=== PATIENT | male | born 1985 | race Caucasian/White ===

== ENCOUNTER 2020-10-28 07:37 | Emergency (ER) | payer MEDICAID ==
[~2020-10-28] VITALS: Ht 170.2 cm; Wt 69.9 kg
--- NOTE | 2020-10-28 07:37 | NUR ---
PT [address] C/O ABDOMINAL PAIN AND SUICIDAL IDEATION "I WANT TO CUT MY WRIST" PT IS AAOX4, NOT IN RESPIRATORY DISTRESS, V/S STABLE, KEPT RESTED AND COMFORTABLE. SITTER AT BEDSIDE. WILL CONTINUE TO MONITOR.
--- NOTE | 2020-10-28 07:42 | NUR ---
URINE SPECIMEN COLLECTED AND SENT TO LAB.
--- NOTE | 2020-10-28 07:49 | NUR ---
SEEN AND EXAMINED BY .
[2020-10-28] MEDS ORDERED: LORAZEPAM 1 MG TABLET ONE (07:59)
[2020-10-28] MEDS ORDERED: LORAZEPAM 1 MG TABLET PO ONE (08:00)
--- NOTE | 2020-10-28 08:01 | NUR ---
ER PHLEB AT BEDSIDE FOR BLOOD DRAW.
[2020-10-28 08:18] LABS: BASOPHILS % (AUTO) 0.5 % (0.0-2.0); EOSINOPHILS % (AUTO) 1.1 % (0.0-6.0); HEMATOCRIT 41 % (39-51); HEMOGLOBIN 13.7 g/dL (13.5-17.5); LYMPHOCYTES # (AUTO) 1.7 K/uL (0.8-4.8); LYMPHOCYTES % (AUTO) 18.6 % (20.0-44.0); MEAN CORPUSCULAR HGB CONC 33 g/dl (31.0-36.0); MEAN CORPUSCULAR VOLUME 92 fL (80-96); MONOCYTES # (AUTO) 0.5 K/uL (0.1-1.30); NEUTROPHILS # (AUTO) 6.7 K/uL (1.8-8.9); NEUTROPHILS % (AUTO) 73.8 % (43.0-81.0); PLATELET COUNT (AUTO) 266 K/uL (150-450); RED BLOOD CELL COUNT(AUTO) 4.53 MIL/uL (4.5-6.0)
[2020-10-28 08:20] LABS: BILIRUBIN,URINE NEGATIVE (NEGATIVE); COLOR,URINE YELLOW (YELLOW); LEUKOCYTE ESTERASE ,URINE NEGATIVE (NEGATIVE); NITRITE, URINE NEGATIVE (NEGATIVE); PROTEIN,URINE NEGATIVE (NEGATIVE); UGLUCOSE >=1000 mg/dL (NEGATIVE); UROBILINOGEN,URINE 0.2 EU/dL (0.2)
[2020-10-28 08:30] LABS: ALANINE AMINOTRANSFERASE 26 U/L (12-78); ALBUMIN 3.3 g/dL (3.4-5.0); ALCOHOL, BLOOD < 3 mg/dL (0-0); ALKALINE PHOSPHATASE 75 U/L (46-116); ASPARTATE AMINOTRANSFERASE 22 U/L (15-37); BILIRUBIN,DIRECT 0.1 mg/dL (0.0-0.2); BILIRUBIN,TOTAL 0.4 mg/dL (0.2-1.0); CALCIUM, SERUM 8.5 mg/dL (8.5-10.1); CARBON DIOXIDE 28 mmol/L (21-32); CHLORIDE 99 mmol/L (98-107); CREATININE 0.8 mg/dL (0.6-1.3); GLUCOSE 335 mg/dL (74-106); POTASSIUM 3.8 mmol/L (3.5-5.1); SODIUM SERUM 134 mmol/L (136-145); TOTAL PROTEIN, SERUM 6.4 g/dL (6.4-8.2); UREA NITROGEN, BLOOD 10 mg/dL (7-18)
[2020-10-28 08:37] LABS: ACETAMINOPHEN 0 ug/ml (10-30)
[2020-10-28 08:43] LABS: BACTERIA,URINE None seen /HPF (None Seen); RBC,URINE 0-2 /HPF (0-2); SQUAMOUS EPITHELIAL CELL,UR Few /HPF (None Seen); WBC,URINE 0-2 /HPF (0-3)
--- NOTE | 2020-10-28 10:31 | NUR ---
BRIANDA HERNANDEZ, CALLED, WAITING ON BREAD DOUGH MIXER F Addendum: 10/28/20 at 1032 by CALISTA BRIANDA HERNANDEZ, CALLED, WAITING ON BREAD D[employer] MIXER FOR ACCEPTANCE
--- NOTE | 2020-10-28 10:42 | NUR ---
Continuing Education Dean note: environmental services coordinator requested for suicidal ideation, homelessness and substance use. Patient is a 35-year-old, male. SW attempted to interview patient at his bedside in the emergency department. Patient was unarousable and presented lethargic. Patient appeared well-groomed. Per chart, pending admission to [facility]. PLAN: SW will follow up at a later time to interview patient and assess patient's need for community resources.
--- NOTE | 2020-10-28 11:41 | NUR ---
PT ACCEPTED TO [facility] [address] CALL [phone] FOR REPORT
--- NOTE | 2020-10-28 11:43 | NUR ---
AFTER 1330
--- NOTE | 2020-10-28 12:31 | NUR ---
CALLED FOR TRANSPORT [facility] HAS AN ETA OF [phone]
--- NOTE | 2020-10-28 13:56 | NUR ---
REPORT GIVEN TO ROMINA BRUNER AT [facility]. AWAITING TRANSPORT AMBULANCE.
[2020-10-28 13:59] VITALS: BP 121/68
--- NOTE | 2020-10-28 15:00 | NUR ---
Public Health Nutritionist note: Social service consult requested for SI, homelessness, and substance use. SW attempted to interview patient but patient had already discharged to [facility]. No further SS intervention at this time, however, SW will remain available as needed.
== END 2020-10-28 14:27 ==
LOC: ER 07:42
DX: R45.851 Suicidal ideations (principal); R10.13 Epigastric pain; Z20.822 Contact with and (suspected) exposure to COVID-19; F41.9 Anxiety disorder, unspecified
CPT/HCPCS: 36415; 80048; 80076; 80143; 80307; 80320; 81001; 85025; 87426; 99285; C9803; G0480